=== PATIENT | female | born 1960 | race Caucasian/White ===

== ENCOUNTER → 2017-06-17 | Outpatient (CLI) | payer OTHER | LOC: HYPER 06:42 | DX: T81.31XA Disruption of external operation (surgical) wound, not elsewhere classified, initial encounter (principal); E11.39 Type 2 diabetes mellitus with other diabetic ophthalmic complication; H40.9 Unspecified glaucoma; I10 Essential (primary) hypertension; E78.5 Hyperlipidemia, unspecified; K21.9 Gastro-esophageal reflux disease without esophagitis; M19.90 Unspecified osteoarthritis, unspecified site; J45.909 Unspecified asthma, uncomplicated; Y92.89 Other specified places as the place of occurrence of the external cause; Y83.8 Other surgical procedures as the cause of abnormal reaction of the patient, or of later complication, without mention of misadventure at the time of the procedure ==

== ENCOUNTER → 2017-09-17 | Outpatient (CLI) | payer OTHER ==
[~2017-09-17] MED LIST: ALLEGRA ALLERG180 MG PO; APRISO0.375 GM PO; BEVESPI AEROS10.7 GM INH; BREO ELLIPTA 21 EACH INH; CITRUCEL500 MG PO; CYCLOBENZAPRINE5 MG PO; GAMUNEX-C1 GM/10 ML IV; GLYBURIDE 2.52.5 MG PO; LEVALBUTER1.25 MG/3 INH; LIPITOR10 MG PO; MAXZIDE-25 MG1 EACH PO; ONDANSETRON HCL4 M2 PO; OXYCODONE-APAP1 EAC6 PO; PROTONIX40 M1 PO; SINGULAIR 10 MG10 M1 PO; TRAMADOL 50 MG50 MG PO; XIIDRA1 EACH OPHTHALMIC; XOPENEX HFA15 GM INH; ZANTAC 150MG T150 MG PO
== END ==
LOC: CAT 08:07
DX: K43.9 Ventral hernia without obstruction or gangrene (principal)

== ENCOUNTER 2017-11-16 05:36 | Inpatient (IN) | payer OTHER ==
[~2017-11-16] VITALS: Ht 160 cm; Wt 90.7 kg
--- NOTE | ~2017-11-16 | EKG ---
[address] [address] ELECTROCARDIOGRAM REPORT Name: KATELYNN MORENO Room #: 150-1 ADM IN M.R.#: [id number] Admission: 11/16/17 Attend Phys: Arnaldo Barnes Discharge: Date of : 60 Report #: [id number] THIS REPORT FOR: //name// [facility] Test Date: 2017-11-16 Test Time: 06:13:26 Pat Name: KATELYNN MORENO Department: Room: 150 1 Gender: F Car [place]: [place] : 1960 Requested By: Arnaldo Rivera Order Number: [id number] MD: Reagan Garcia Measurements Intervals [place] Rate: 97 P: 37 DE: 147 QRS: 22 QRSD: 93 T: -5 QT: 368 QTc: 468 Interpretive Statements Sinus rhythm Inferior infarct, old No previous ECG available for comparison Electronically Signed On 11-16-2017 7:34:09 CDT by Reagan Garcia [email or web address] <ELECTRONICALLY SIGNED> By: Reagan Garcia MD 11/16/17 0734 0613 2 Reagan Garcia MD /BERENICE
[~2017-11-16 05:36] MED LIST changes: -CYCLOBENZAPRINE5 MG PO; -GAMUNEX-C1 GM/10 ML IV; -ONDANSETRON HCL4 M2 PO; -OXYCODONE-APAP1 EAC6 PO; -TRAMADOL 50 MG50 MG PO
[2017-11-16 06:39] VITALS: BP 148/88
[2017-11-16 07:02] LABS: HEMATOCRIT 35.7 % (37.0-47.0); HEMOGLOBIN 11.3 gm/dL (12.0-15.0); MCH 24.4 pg (26.0-34.0); MCHC 31.7 g/dL (28.0-37.0); MCV 76.9 fL (80.0-100.0); RBC 4.64 mil/uL (4.20-5.00); WBC 9.9 thou/uL (4.0-11.0)
[2017-11-16 07:15] LABS: CALCIUM 9.6 mg/dL (8.5-10.1); CREATININE 1.2 mg/dL (0.6-1.0); POTASSIUM 3.6 mmol/L (3.5-5.1)
[2017-11-16 18:00] VITALS: BP 148/80
[2017-11-16 18:30] VITALS: BP 142/77
[2017-11-16 19:00] VITALS: BP 157/81
[2017-11-16 20:27] VITALS: BP 126/67
[2017-11-17] VITALS: BP 105/60
[2017-11-17 04:10] VITALS: BP 119/67
[2017-11-17 06:10] LABS: HEMATOCRIT 31.7 % (37.0-47.0); HEMOGLOBIN 10.2 gm/dL (12.0-15.0); MCHC 32.2 g/dL (28.0-37.0); MCV 77.8 fL (80.0-100.0); RBC 4.07 mil/uL (4.20-5.00); RDW 17.2 % (10.5-14.5); WBC 15.6 thou/uL (4.0-11.0)
[2017-11-17 06:33] LABS: CALCIUM 8.7 mg/dL (8.5-10.1); POTASSIUM 3.9 mmol/L (3.5-5.1)
[2017-11-17 08:00] VITALS: BP 130/78
[2017-11-17 15:55] VITALS: BP 100/67
[2017-11-17 19:21] VITALS: BP 111/66
[2017-11-18 05:30] VITALS: BP 154/92
[2017-11-18 08:00] VITALS: BP 129/77
[2017-11-18 15:59] VITALS: BP 118/70
[2017-11-18 19:22] VITALS: BP 113/65
[2017-11-19 06:00] VITALS: BP 108/66
[2017-11-19] MEDS ORDERED: TRAMADOL 50 MG50 MG PO (08:34)
[2017-11-19] MEDS ORDERED: CYCLOBENZAPRINE5 MG PO (08:34)
[2017-11-19] MEDS ORDERED: ONDANSETRON HCL4 M2 PO (08:34)
[2017-11-19] MEDS ORDERED: OXYCODONE-APAP1 EAC6 PO (08:34)
[2017-11-19 09:16] VITALS: BP 125/68
[2017-11-19 13:23] VITALS: BP 125/68
== END 2017-11-19 14:35 | disposition home or self-care (01) | DRG 354 ==
LOC: TBA 05:36 → PRE 08:35 → OR 10:43 → PRE 10:46 → OR 11:32 → EDSTATUS 11:33 → PRE 11:37 → 4W 18:12 → ENTRNSPT 11-19 14:17 → EDTRNSPTSTS 11-19 14:26 → 4W 11-19 14:35
PROVIDERS: Surgery
DX: K43.0 Incisional hernia with obstruction, without gangrene (principal); N17.9 Acute kidney failure, unspecified; K43.6 Other and unspecified ventral hernia with obstruction, without gangrene; I10 Essential (primary) hypertension; K21.9 Gastro-esophageal reflux disease without esophagitis; E78.5 Hyperlipidemia, unspecified; E11.9 Type 2 diabetes mellitus without complications; J45.909 Unspecified asthma, uncomplicated; D64.9 Anemia, unspecified; K57.90 Diverticulosis of intestine, part unspecified, without perforation or abscess without bleeding; Z90.49 Acquired absence of other specified parts of digestive tract; Z88.8 Allergy status to other drugs, medicaments and biological substances; Z88.1 Allergy status to other antibiotic agents; Z91.013 Allergy to seafood; Z79.899 Other long term (current) drug therapy; Z90.710 Acquired absence of both cervix and uterus; Z93.2 Ileostomy status
CPT/HCPCS: 10047; 50010; 50101; 50249; 50331; 50386; 50455; 50558; 52265; 54022; 54118; 56524; 56525; 56526; 56531; 56641; 57092; 57121; 57130; 62110; 62900; 64029; 64039; 65002; 65020; 65040; 65043; 70005

== ENCOUNTER → 2017-12-10 | Outpatient (CLI) | payer OTHER ==
[~2017-12-10] MED LIST changes: +CYCLOBENZAPRINE5 MG PO; +ONDANSETRON HCL4 M2 PO; +OXYCODONE-APAP1 EAC6 PO; +TRAMADOL 50 MG50 MG PO
[2017-12-10 09:15] VITALS: BP 127/74
[2017-12-10 11:13] LABS: ABSOLUTE NEUTROPHILS 4.7 thou/uL (1.4-8.2); EOSINOPHILS 11.6 % (0.0-3.0); HEMATOCRIT 30.9 % (37.0-47.0); HEMOGLOBIN 9.9 gm/dL (12.0-15.0); LYMPHOCYTES 24.5 % (24.0-44.0); MCH 24.5 pg (26.0-34.0); MCHC 32.1 g/dL (28.0-37.0); MCV 76.2 fL (80.0-100.0); MONOCYTES 5.3 % (1.0-8.0); PLATELET COUNT 355 thou/uL (150-400); POLYS 57.6 % (36.0-66.0); RBC 4.05 mil/uL (4.20-5.00); WBC 8.2 thou/uL (4.0-11.0)
[2017-12-10 11:27] LABS: ALBUMIN 3.4 g/dL (3.4-5.0); CALCIUM 9.4 mg/dL (8.5-10.1); CREATININE 1.1 mg/dL (0.6-1.0); POTASSIUM 4.3 mmol/L (3.5-5.1); TOTAL BILIRUBIN 0.2 mg/dL (<0.1-1.0); TOTAL PROTEIN 7.6 g/dL (6.4-8.2)
== END ==
LOC: OPONC 01:31
DX: D80.1 Nonfamilial hypogammaglobulinemia (principal)
CPT/HCPCS: 95000; 95001

== ENCOUNTER → 2018-01-07 | Outpatient (CLI) | payer OTHER ==
[~2018-01-07] MED LIST changes: +GAMUNEX-C1 GM/10 ML IV
[2018-01-07 08:17] VITALS: BP 123/76
== END ==
LOC: OPONC 00:55
DX: D80.1 Nonfamilial hypogammaglobulinemia (principal)
CPT/HCPCS: 95000; 95001